=== PATIENT | male | born 1965 | race Caucasian/White ===

== ENCOUNTER → 2020-09-14 | Outpatient (CLI) | payer BC ==
--- NOTE | 2020-09-15 06:49 | MR ---
EXAMINATION TYPE: MR iac wo/w con DATE OF EXAM: 09/14/2020 COMPARISON: NONE HISTORY: Hearing trouble in both ears, dizziness. TECHNIQUE: Multiplanar, multisequence images of the brain and brainstem is performed without and with IV contras t, utilizing 11.5 mL intravenous Gadavist . Acoustic nerve disorder protocol. FINDINGS: Diffusion weighted images demonstrate no evidence of a recent infarct or other diffusion ab normality. There is mild ventricular and sulcal prominence. There are scattered foci of T2 hyperinte nsity seen throughout the white matter bilaterally. Approximately 10-15 small scattered lesions are p resent. Midline structures demonstrate normal morphology. The craniocervical junction appears within normal limits. Nasal septum slightly deviated to right of midline with mild mucosal thickening involving ant erior ethmoid sinuses. Globes are intact bilaterally. No suspicious fluid signal in the mastoid air cells bilaterally. Vestibulocochlear complexes are symm etric and felt within normal limits. There is no suspicious enhancing cerebellopontine angle mass mary ntified bilaterally. IMPRESSION: 1. Mild diffuse age-related cerebral atrophy and chronic small vessel ischemic changes. 2. Mild chronic anterior ethmoid sinus disease. 3. No suspicious finding in the internal auditory canals to come for patient's symptoms of dizziness and hearing troubles.
== END | disposition home or self-care (01) ==
LOC: RADMRIMAIN 09:13
PROVIDERS: ATTEND Otolaryngology
DX: J32.2 Chronic ethmoidal sinusitis (principal)
CPT/HCPCS: 70553; A9585

== ENCOUNTER 2020-11-11 06:55 | Day surgery (SDC) | payer BC ==
[2020-11-10 11:06] VITALS: BMI 35.5
[~2020-11-11 06:55] MED LIST: LACTATED RINGERS 1,000 ML IV SCH
[2020-11-11 07:21] VITALS: TEMP 97.5
[2020-11-11] MEDS ORDERED: fentaNYL (PF) 50 MCG/ML 2 ML AMP ONE (08:12)
[2020-11-11] MEDS ORDERED: PROPOFOL 10 MG/ML 20 ML VIAL IV ONE (08:12)
[2020-11-11] MEDS ORDERED: MIDAZOLAM 2 MG/2 ML VIAL ONE (08:12)
--- NOTE | 2020-11-11 08:27 | P.PCN ---
Date of Procedure: 11/11/20 Procedure(s) Performed: BRIEF HISTORY: Patient is a 55-year-old pleasant white female scheduled for an elective colonoscopy as a part of evaluation of history of colon polyps. Last coloscopy was 5 years ago. PROCEDURE PERFORMED: Colonoscopy. PREOPERATIVE DIAGNOSIS: History of colon polyps. IV sedation per Anesthesia. PROCEDURE: After informed consent was obtained, the patient, was brought into the endoscopy unit. IV sedation was administered by Anesthesia under continuous monitoring. Digital rectal examination was normal. Initially the Olympus CF-160 flexible video colonoscope was then inserted in the rectum, gradually advanced into the cecum without any difficulty. Careful examination was performed as the scope was gradually being withdrawn. Ileocecal valve and the appendiceal orifice were visualized and appeared normal. Prep was excellent. Mucosa of the cecum, ascending colon, transverse colon, descending colon, sigmoid colon, and rectum appeared normal. Retroflexion was performed in the rectum and no lesions were seen. The patient tolerated the procedure well. IMPRESSION: Normal-appearing colon from rectum to cecum no evidence of colorectal neoplasia. RECOMMENDATIONS: Findings of this examination were discussed with the patient as well as his family. He was advised to have a repeat surveillance colonoscopy in 5 years because of the prior history of colon polyps.
[2020-11-11 08:44] VITALS: BP 116/71; PULSE 73; RESP 18
== END 2020-11-11 09:19 | disposition home or self-care (01) ==
LOC: ORWHC2ENDO 06:55
PROVIDERS: ATTEND Internal Medicine Gastroenterology
DX: Z12.11 Encounter for screening for malignant neoplasm of colon (principal); I10 Essential (primary) hypertension; G47.33 Obstructive sleep apnea (adult) (pediatric); Z86.010 Personal history of colon polyps; Z79.899 Other long term (current) drug therapy; Z99.89 Dependence on other enabling machines and devices
CPT/HCPCS: J2250; J3010; J2704; G0105; 45378

== ENCOUNTER → 2022-01-23 | Outpatient (CLI) | payer BC ==
--- NOTE | 2022-01-23 08:01 | US ---
EXAMINATION TYPE: US liver DATE OF EXAM: 01/23/2022 COMPARISON: NONE CLINICAL HISTORY: R74.01 ELEVATED LIVER ENZYMES. large habitus, elevated lft's, no symptoms EXAM MEASUREMENTS: Liver Length: 21.2 cm Gallbladder Wall: 0.3 cm CBD: 0.6+ cm Right Kidney: 11.7 x 6.1 x 6.6 cm limited views due to bowel gas and habitus Pancreas: limited views appear wnl Liver: heterogeneous and enlarged, difficult to penetrate Gallbladder: wnl Evidence for sonographic Mosqueda's sign: no CBD: wnl Right Kidney: wnl IMPRESSION: 1. Hepatomegaly with nonspecific pattern to the liver can be seen with diffuse hepatocellular disease , discitis or 2. No gallstones. Common bile duct measures at the upper limits of normal-sized 6 mm. Correlate clini cooper
== END | disposition home or self-care (01) ==
LOC: RADUSWWP 07:06
PROVIDERS: ATTEND Family Medicine
DX: R16.0 Hepatomegaly, not elsewhere classified (principal); R74.01 Elevation of levels of liver transaminase levels
CPT/HCPCS: 76705